=== PATIENT | female | born 2000 | race Two or more races ===

== ENCOUNTER 2022-07-04 23:52 | Emergency (ER) | payer SELFPAY ==
[~2022-07-04] VITALS: Ht 152.4 cm; Wt 49.0 kg
[2022-07-04 23:59] VITALS: BP 96/75
== END 2022-07-05 01:02 | disposition left against medical advice (07) ==
LOC: EMS 23:53
DX: S50.872A Other superficial bite of left forearm, initial encounter (principal); Z53.21 Procedure and treatment not carried out due to patient leaving prior to being seen by health care provider; W54.0XXA Bitten by dog, initial encounter; Y93.89 Activity, other specified; Y92.89 Other specified places as the place of occurrence of the external cause; Y99.8 Other external cause status